=== PATIENT | female | born 1990 | race African-American/Black ===

== ENCOUNTER 2020-01-25 12:18 | Emergency (ER) | payer OTHER ==
[~2020-01-25] VITALS: Ht 157.5 cm; Wt 60.0 kg
[~2020-01-25 12:18] MED LIST: PRENATAL ONE T1 EACH PO
[2020-01-25] MEDS ORDERED: ACETAMINOPHEN 325MG TABLET PO PRN (13:30)
[2020-01-25 14:20] LABS: BASOPHILS % 0.6 % (0.0-2.0); EOSINOPHILS % 0.6 % (0.0-5.0); HEMATOCRIT. 35.5 % (36.0-48.0); LYMPHOCYTES % 17.2 % (20.0-50.0); MEAN CORPUSCULAR HEMOGLOBIN 30.8 pg (28.0-32.0); MEAN CORPUSCULAR VOLUME 90.8 fL (81.0-99.0); MEAN PLATELET VOLUME 8.7 fl (7.4-10.4); MONOCYTES % 6.5 % (2.0-8.0); NEUTROPHILS % 75.1 % (40.0-76.0); PLATELET 224 x1000/uL (130-400); RED BLOOD CELL COUNT 3.91 mill/uL (4.2-5.4); RED CELL DISTRIBUTION WIDTH 16.1 % (11.6-14.6)
[2020-01-25 14:21] LABS: CLARITY URINE CLOUDY (CLEAR); COLOR URINE YELLOW (YELLOW); KETONES URINE NEGATIVE (NEGATIVE); LEUKOCYTE ESTERASE URINE 1+ (NEGATIVE); NITRITE URINE NEGATIVE (NEGATIVE); OCCULT BLOOD URINE NEGATIVE (NEGATIVE); PH URINE 7.5 (4.5-8.0); PROTEIN URINE NEGATIVE (NEGATIVE); SPECIFIC GRAVITY URINE 1.015 (1.005-1.030); UROBILINOGEN URINE 0.2 E.U./dL (0.2-1.0)
[2020-01-25 14:25] LABS: CHLORIDE 105 mEq/L (98-107)
[2020-01-25 14:50] LABS: B-HCG QUANTITATIVE 34005 mIU/mL (<3)
[2020-01-25 15:30] VITALS: BP 115/66
== END 2020-01-25 16:15 | disposition home or self-care (01) ==
LOC: ER 12:18
DX: O23.32 Infections of other parts of urinary tract in pregnancy, second trimester (principal); Z3A.16 16 weeks gestation of pregnancy
CPT/HCPCS: 36415; 76805; 76830; 80053; 81003; 84702; 85025; 99284

== ENCOUNTER 2024-10-06 09:06 | Emergency (ER) | payer MEDICAID, OTHER ==
[~2024-10-06] VITALS: Ht 167.6 cm; Wt 63.0 kg
[2024-10-06 09:07] VITALS: O2SAT 98
[2024-10-06] MEDS: ONDANSETRON HCL 4MG/2ML INJ IV STA (09:34)
[2024-10-06] MEDS: MORPHINE SULFATE 4 MG/ML INJ (FOR IV/IM USE) IV STA (09:34)
[2024-10-06] MEDS: SODIUM CHLORIDE 0.9% 1,000 ML IV ONE (09:45)
[2024-10-06 09:47] LABS: BASOPHILS % 0.4 % (0.0-2.0); DIFFERENTIAL COMMENT 0; EOSINOPHILS % 0.1 % (0.0-5.0); HEMATOCRIT. 30.4 % (36.0-48.0); HEMOGLOBIN. 9.3 g/dL (12.0-16.0); LYMPHOCYTES % 10.5 % (20.0-50.0); MEAN CORPUSCULAR HEMOGLOBIN 22.5 pg (28.0-32.0); MEAN CORPUSCULAR HGB CONC 30.6 g/dL (31.0-37.0); MEAN CORPUSCULAR VOLUME 73.7 fL (81.0-99.0); MEAN PLATELET VOLUME 8.3 fl (7.4-10.4); MONOCYTES % 3.5 % (2.0-8.0); NEUTROPHILS % 85.5 % (40.0-76.0); PLATELET 337 x1000/uL (130-400); RED BLOOD CELL COUNT 4.12 mill/uL (4.2-5.4); RED CELL DISTRIBUTION WIDTH 17.4 % (11.6-14.6); WHITE BLOOD COUNT 4.5 x1000/uL (4.5-11.0)
[2024-10-06 09:58] LABS: CHLORIDE 111 mEq/L (98-107); POTASSIUM 3.7 mEq/L (3.5-5.1); SODIUM 141 mEq/L (136-145)
[2024-10-06 09:59] LABS: CALCIUM 8.9 mg/dL (8.7-10.4); CARBON DIOXIDE 20 mEq/L (21-32)
[2024-10-06 10:04] LABS: CREATININE 0.7 mg/dL (0.6-1.0); GLUCOSE 100 mg/dL (70-105); UREA NITROGEN BLOOD 9 mg/dL (9-23)
[2024-10-06 10:06] LABS: HCG SCREEN NEGATIVE
[2024-10-06 10:19] LABS: ALANINE AMINOTRANSFERASE 11 IU/L (10-49); ASPARTATE AMINOTRANSFERASE 21 IU/L (<34)
[2024-10-06 10:20] LABS: ALBUMIN 4.1 g/dL (3.2-4.8); BILIRUBIN DIRECT 0.1 mg/dL (<=3.0); BILIRUBIN TOTAL 0.5 mg/dL (0.1-1.0); PROTEIN TOTAL 6.8 g/dL (6.0-8.3)
[2024-10-06 12:18] LABS: GLUCOSE URINE NEGATIVE (NEGATIVE); KETONES URINE NEGATIVE (NEGATIVE)
[2024-10-06 12:37] LABS: CLARITY URINE TURBID (CLEAR); COLOR URINE BLOODY (YELLOW)
[2024-10-06 12:38] LABS: LEUKOCYTE ESTERASE URINE 3+ (NEGATIVE); NITRITE URINE POSITIVE (NEGATIVE); OCCULT BLOOD URINE 3+ (NEGATIVE); PH URINE 6.5 (4.5-8.0); PROTEIN URINE 2+ (NEGATIVE); SPECIFIC GRAVITY URINE 1.037 (1.005-1.030); UROBILINOGEN URINE 0.2 E.U./dL (0.2-1.0)
[2024-10-06 12:40] LABS: RBC URINE TNTC /hpf (0-2)
[2024-10-06 12:41] LABS: BACTERIA URINE 4+; SQUAMOUS EPITHELIAL CELL URINE 1+ /lpf (RARE/1+)
[2024-10-06 12:44] LABS: WBC URINE 25-50 /hpf (0-2)
[2024-10-06] MEDS ORDERED: NAPR220C61 MT (13:00)
[2024-10-06 14:38] VITALS: BP 108/58; PULSE 88; RESP 18; TEMP 36.78072; O2SAT 98
[2024-10-06] MEDS ORDERED: NITR-87 MT (15:37)
== END 2024-10-06 14:39 | disposition home or self-care (01) ==
LOC: ER 09:06
DX: D25.9 Leiomyoma of uterus, unspecified (principal); D64.9 Anemia, unspecified; N39.0 Urinary tract infection, site not specified; Z98.51 Tubal ligation status
CPT/HCPCS: 80076; 80048; 81003; 84703; 85025; 87086; 36415; 74177; 76830; 76856; 96374; 96375; 99285; J2405; J2270; J7030; Z7610 ×2

== ENCOUNTER 2025-08-03 09:42 | Emergency (ER) | payer MEDICAID ==
[~2025-08-03] VITALS: Ht 157.5 cm; Wt 60.0 kg
[~2025-08-03 09:42] MED LIST changes: +NAPR220C61 MT; +NITR-87 MT
[2025-08-03 09:46] VITALS: O2SAT 100
[2025-08-03 10:41] LABS: BASOPHILS % 1.4 % (0.0-2.0); EOSINOPHILS % 3.3 % (0.0-5.0); HEMATOCRIT. 26.6 % (36.0-48.0); HEMOGLOBIN. 8.0 g/dL (12.0-16.0); LYMPHOCYTES % 51.6 % (20.0-50.0); MEAN PLATELET VOLUME 8.0 fl (7.4-10.4); MONOCYTES % 8.1 % (2.0-8.0); NEUTROPHILS % 35.6 % (40.0-76.0); PLATELET 297 x1000/uL (130-400); RED BLOOD CELL COUNT 3.84 mill/uL (4.2-5.4); RED CELL DISTRIBUTION WIDTH 19.7 % (11.6-14.6)
[2025-08-03 10:45] LABS: ADD RBC MORPHOLOGY YES
[2025-08-03 10:52] LABS: INR 1.0
[2025-08-03 10:55] LABS: CREATININE 0.7 mg/dL (0.6-1.0); UREA NITROGEN BLOOD 6 mg/dL (9-23)
[2025-08-03 10:57] LABS: TROPONIN I HIGH SENSITIVITY < 4 ng/L (3.0-34)
[2025-08-03 11:12] LABS: HCG SCREEN NEGATIVE
[2025-08-03 11:20] LABS: PLATELET ESTIMATE NORMAL
[2025-08-03] MEDS: IBUPROFEN 600MG TABLET PO ONE (11:24)
[2025-08-03] MEDS ORDERED: IBUP-1455 MT (11:44)
[2025-08-03 12:12] VITALS: BP 102/62; PULSE 61; RESP 18; TEMP 36.7; O2SAT 100
== END 2025-08-03 12:14 | disposition home or self-care (01) ==
LOC: ER 09:42
DX: M94.0 Chondrocostal junction syndrome [Tietze] (principal); D64.9 Anemia, unspecified; Z98.51 Tubal ligation status; Z98.890 Other specified postprocedural states; Z79.899 Other long term (current) drug therapy
CPT/HCPCS: 36415; 71045; 80048; 84484; 84703; 85025; 93005; 99285